=== PATIENT | male | born 1975 | race African-American/Black ===

== ENCOUNTER 2017-11-12 07:36 | Emergency (ER) | payer MEDICAID ==
[~2017-11-12] VITALS: Ht 185.4 cm; Wt 85.3 kg
[2017-11-12 07:54] VITALS: BP 154/99
[2017-11-12] MEDS ORDERED: LISI-167 PO (07:56)
[2017-11-12] MEDS ORDERED: HYDR25TA6 PO (07:56)
[2017-11-12] MEDS ORDERED: AMLO10TA6 PO (07:56)
[2017-11-12] MEDS ORDERED: KETOROLAC 30 MG/1 ML ONE (07:58)
[2017-11-12] MEDS ORDERED: KETOROLAC 30 MG/1 ML IM ONE (08:00)
== END 2017-11-12 08:27 | disposition home or self-care (01) ==
LOC: ED 08:10
DX: G56.03 Carpal tunnel syndrome, bilateral upper limbs (principal); M79.642 Pain in left hand; M79.641 Pain in right hand; I10 Essential (primary) hypertension
CPT/HCPCS: 29260; 96372; 99283; J1885

== ENCOUNTER 2017-11-15 09:48 | Emergency (ER) | payer MEDICAID ==
[~2017-11-15] VITALS: Ht 185.4 cm; Wt 84.5 kg
[~2017-11-15 09:48] MED LIST: AMLO10TA6 PO; HYDR25TA6 PO; LISI-167 PO
[2017-11-15 09:52] VITALS: BP 173/112
== END 2017-11-15 11:55 | disposition home or self-care (01) ==
LOC: ED 11:11
DX: G56.03 Carpal tunnel syndrome, bilateral upper limbs (principal); I10 Essential (primary) hypertension
CPT/HCPCS: 72125; 99284